=== PATIENT | male | born 1945 | race Hispanic/Latino ===

== ENCOUNTER 2017-04-26 19:56 | Inpatient (IN) | payer OTHER ==
[~2017-04-26] VITALS: Ht 172.7 cm; Wt 96.2 kg
[~2017-04-26 19:56] MED LIST: ACET-2247 PO; ASPI-1012 PO; ATOR10TA69 PO; CELE200 PO; LOSA25TA21 PO; METF500T6 PO; OXYC5 PO; PREG25 PO; TRAM50TA4 PO
[2017-04-26] MEDS ORDERED: SODIUM CHLORIDE 0.9% 1000ML 3,000 ML IV ONE (20:17)
[2017-04-26] MEDS ORDERED: IBUPROFEN 600 MG TABLET ONE (20:25)
[2017-04-26 20:40] LABS: BASOPHILS % (AUTO) 0.6 % (0.0-5.0); EOSINOPHILS % (AUTO) 0.1 % (0.0-8.0); HEMATOCRIT 42.8 % (42-54); LYMPHOCYTES % (AUTO) 11.3 % (21.0-51.0); MEAN CORPUSCULAR HEMOGLOBIN 32.2 pg (27.0-33.0); MEAN CORPUSCULAR HGB CONC 35.1 g/dL (32.0-36.0); MEAN CORPUSCULAR VOLUME 91.7 fL (79-99); MONOCYTES % (AUTO) 18.6 % (3.0-13.0); NEUTROPHILS % (AUTO) 69.4 % (40.0-77.0); PLATELET COUNT (AUTO) 180 K/uL (130-400); RED BLOOD CELL COUNT(AUTO) 4.67 MIL/uL (4.50-6.20); WHITE BLOOD COUNT (AUTO) 10.9 K/uL (4.8-10.8)
[2017-04-26 20:44] LABS: CARBON DIOXIDE 22 mmol/L (21-32); CHLORIDE 101 mmol/L (101-111); CREATININE 0.9 mg/dL (0.5-1.5); GLOMERULAR FILTR. RATE CALC 89 mL/min (>60); GLUCOSE,RANDOM 158 mg/dL (70-105); POTASSIUM 3.9 mmol/L (3.5-5.1); SODIUM SERUM 134 mmol/L (136-145); UREA NITROGEN, BLOOD 19 mg/dL (7-18)
[2017-04-26 20:45] LABS: INR 1.09 (0.85-1.15); PARTIAL THROMBOPLASTIN TIME 30.1 SEC (26.3-35.5); PROTHROMBIN TIME 11.4 SEC (9.6-11.6)
[2017-04-26 21:01] LABS: ALANINE AMINOTRANSFERASE 36 U/L (12-78); ALBUMIN 3.5 g/dL (3.5-5.0); ASPARTATE AMINOTRANSFERASE 40 U/L (10-37); CREATINE KINASE MB 0.6 ng/mL (0.5-3.6); CREATINE KINASE, TOTAL 272 U/L (21-232); MYOGLOBIN 76 ng/mL (10-92); TOTAL PROTEIN, SERUM 8.1 g/dL (6.0-8.3); TROPONIN I < 0.04 ng/mL (0.00-0.06)
[2017-04-26 21:47] LABS: APPEARANCE,URINE Clear (CLEAR); BILIRUBIN,URINE Small (NEGATIVE); COLOR,URINE Dark Yellow (YELLOW); GLUCOSE, URINE (UA) Negative (NEGATIVE); KETONES,URINE Negative (NEGATIVE); LEUKOCYTE ESTERASE ,URINE Small (NEGATIVE); NITRATE,URINE Negative (NEGATIVE); OCCULT BLOOD,URINE Negative (NEGATIVE); PROTEIN,URINE POS 2+ (NEGATIVE)
[2017-04-26 21:54] LABS: RBC,URINE 0-1 /HPF (0-1)
[2017-04-26 21:55] LABS: BACTERIA,URINE Rare /HPF (None Seen); MUCUS,URINE Rare LPF (None Seen); SQUAMOUS EPITHELIAL CELL,UR Rare /HPF (0-2)
[2017-04-26] MEDS ORDERED: LIDOCAINE HCL 1% 20 ML VIAL ONE (22:40)
[2017-04-26] MEDS ORDERED: SODIUM CHLORIDE 0.9% 50 ML IV ONE (23:26)
[2017-04-26] MEDS ORDERED: CEFTRIAXONE SODIUM 2 GM VIAL ONE (23:26)
[2017-04-26] MEDS ORDERED: VANCOMYCIN 1GM+NS 250ML 250 ML IV ONE (23:26)
[2017-04-27 00:18] LABS: APPEARANCE BODY FLUID TURBID (CLEAR); COLOR,BODY FLUID YELLOW (LT YELLOW); SPECIMENTYPE,BODY FLUID SYNOVIAL; TOTAL VOLUME,BODY FLUID 31 mL
[2017-04-27 00:19] LABS: BODY FLUID WBC 65600 /cu. mm.
[2017-04-27 00:20] LABS: BODY FLUID RBC 16000 /cu. mm.
[2017-04-27 00:24] LABS: BF LYMPHOCYTE 10 %; BF MONOCYTE 1 %; BF OTHER CELLS 2
[2017-04-27] MEDS ORDERED: POTASSIUM CHLORIDE 20 MEQ ERTAB PO PRN (01:45)
[2017-04-27] MEDS ORDERED: ACETAMINOPHEN 325 MG TAB PO PRN ×2 (01:45)
[2017-04-27] MEDS ORDERED: POTASSIUM CHLORIDE 10% ELIXIR 20 MEQ/15 ML UDCUP PO PRN (01:45)
[2017-04-27] MEDS ORDERED: VANCOMYCIN 1GM+NS 250ML 250 ML IV SCH (01:45)
[2017-04-27] MEDS ORDERED: MORPHINE SULFATE 2 MG/ML 1ML SYG IV PRN (01:45)
[2017-04-27] MEDS ORDERED: CEFTRIAXONE 1GM/D5W 50ML 50 ML IV SCH (01:45)
[2017-04-27] MEDS ORDERED: POTASSIUM CHLORIDE 20MEQ/100ML 100 ML IV PRN (01:45)
[2017-04-27] MEDS ORDERED: ONDANSETRON HCL 4 MG/2 ML VIAL IV PRN (01:45)
[2017-04-27] MEDS ORDERED: LIDOCAINE HCL-MPF 1% 2ML VIAL IVP PRN (01:45)
[2017-04-27] MEDS ORDERED: HYDRALAZINE HCL 20 MG/ML VIAL IV PRN (01:45)
[2017-04-27] MEDS ORDERED: VANCOMYCIN PROTOCOL PER PHARMACY IV SCH (02:00)
[2017-04-27 06:26] LABS: HEMATOCRIT 38.5 % (42-54); MEAN CORPUSCULAR HEMOGLOBIN 32.8 pg (27.0-33.0); MEAN CORPUSCULAR HGB CONC 35.7 g/dL (32.0-36.0); MEAN CORPUSCULAR VOLUME 91.7 fL (79-99); PLATELET COUNT (AUTO) 140 K/uL (130-400); RED BLOOD CELL COUNT(AUTO) 4.19 MIL/uL (4.50-6.20); RED CELL DISTRIBUTION WIDTH 14.2 % (11.0-15.5); WHITE BLOOD COUNT (AUTO) 8.2 K/uL (4.8-10.8)
[2017-04-27 06:59] LABS: CREATININE 0.7 mg/dL (0.5-1.5); POTASSIUM 3.7 mmol/L (3.5-5.1)
[2017-04-27] MEDS ORDERED: POTASSIUM CHLORIDE 20 MEQ ERTAB PO ONE ×2 (08:32→11:22)
[2017-04-27] MEDS ORDERED: PANTOPRAZOLE SODIUM 40 MG TABLET.DR PO ONE (09:10)
[2017-04-27 16:20] VITALS: BP 144/102
[2017-04-27] MEDS: INSULIN HUMULIN R 100 UNIT/ML 3ML SQ SCH ×2 (16:30→21:00)
[2017-04-27] MEDS: CEFTRIAXONE SODIUM 1 GM IVP SCH (17:27)
[2017-04-27] MEDS: PANTOPRAZOLE SODIUM 40 MG TABLET.DR PO SCH (17:27)
[2017-04-27] MEDS ORDERED: PHARMACY COMMUNICATION MISC SCH (17:30)
[2017-04-27 20:00] VITALS: BP 126/68
[2017-04-27] MEDS ORDERED: COMPOUND IV REFRIGERATED 1 EACH IVSOLN MISC PRN (20:30)
[2017-04-27 20:45] VITALS: BP 111/65
[2017-04-27] MEDS: VANCOMYCIN 1.5 GM in SODIUM CHLORIDE 0.9% 250 ML IV SCH (22:20)
[2017-04-27 23:49] VITALS: BP 153/86
[2017-04-28] VITALS (22 sets, daily range): BP systolic 106–145; BP diastolic 58–83
[2017-04-28] MEDS: CEFTRIAXONE SODIUM 1 GM IVP SCH (01:59)
[2017-04-28] MEDS: INSULIN HUMULIN R 100 UNIT/ML 3ML SQ SCH ×6 (05:36→21:11)
[2017-04-28 05:37] LABS: HEMATOCRIT 36.4 % (42-54); MEAN CORPUSCULAR HEMOGLOBIN 32.9 pg (27.0-33.0); MEAN CORPUSCULAR VOLUME 91.2 fL (79-99); PLATELET COUNT (AUTO) 155 K/uL (130-400); RED BLOOD CELL COUNT(AUTO) 3.99 MIL/uL (4.50-6.20); RED CELL DISTRIBUTION WIDTH 14.1 % (11.0-15.5); WHITE BLOOD COUNT (AUTO) 8.5 K/uL (4.8-10.8)
[2017-04-28 05:46] LABS: CREATININE 0.7 mg/dL (0.5-1.5); POTASSIUM 3.9 mmol/L (3.5-5.1)
[2017-04-28] MEDS: PANTOPRAZOLE SODIUM 40 MG TABLET.DR PO SCH (09:00)
[2017-04-28] MEDS: VANCOMYCIN 1.5 GM in SODIUM CHLORIDE 0.9% 250 ML IV SCH ×2 (10:11→20:00)
[2017-04-28] MEDS ORDERED: LIDOCAINE PF 2% 5ML ABBOJECT ONE (11:57)
[2017-04-28] MEDS ORDERED: DEXAMETHASONE SOD PHOSPHATE 10MG/ML 1ML VIAL ONE ×2 (11:57→13:53)
[2017-04-28] MEDS ORDERED: ONDANSETRON HCL 4 MG/2 ML VIAL ONE (11:57)
[2017-04-28] MEDS ORDERED: GLYCOPYRROLATE 0.2 MG/ML 5 ML VIAL ONE ×2 (11:57→13:54)
[2017-04-28] MEDS ORDERED: PROPOFOL 10 MG/ML 20ML VIAL IV ONE (11:58)
[2017-04-28] MEDS ORDERED: MIDAZOLAM HCL 1 MG/ML 2ML VIAL ONE (11:58)
[2017-04-28] MEDS ORDERED: FENTANYL CITRATE PF 50 MCG/1 ML 2ML VIAL ONE ×3 (11:58→14:57)
[2017-04-28] MEDS ORDERED: GENTAMICIN SULFATE 80 MG/2 ML VIAL ONE ×3 (13:20→14:30)
[2017-04-28] MEDS ORDERED: VANCOMYCIN HCL 1 GM VIAL ONE ×3 (13:20→14:29)
[2017-04-28] MEDS ORDERED: TRANEXAMIC ACID 1000MG/10ML IV ONE (13:21)
[2017-04-28] MEDS ORDERED: SUCCINYLCHOLINE CHLORIDE 20 MG/ML 10 ML VIAL ONE (13:52)
[2017-04-28] MEDS ORDERED: ROCURONIUM BROMIDE 10MG/1ML 5ML VL ONE ×2 (13:52)
[2017-04-28] MEDS ORDERED: METOCLOPRAMIDE 10 MG/2 ML VIAL ONE (13:53)
[2017-04-28] MEDS ORDERED: LIDOCAINE HCL 4% LTA SOL 4 ML VIAL ONE (13:53)
[2017-04-28] MEDS ORDERED: LIDOCAINE HCL 2% JELLY 5 ML ONE (13:53)
[2017-04-28] MEDS ORDERED: PHENYLEPHRINE HCL 10 MG/ML 1ML VIAL IV ONE (13:54)
[2017-04-28] MEDS ORDERED: NEOSTIGMINE METHYLSULFATE 1MG/ML IV ONE (13:54)
[2017-04-28] MEDS ORDERED: GENTAMICIN 80 MG/NS 100 ML PB 100 ML IV ONE (14:38)
[2017-04-28] MEDS ORDERED: SODIUM CHLORIDE 0.9% 10 ML VIAL ONE (14:57)
[2017-04-28] MEDS ORDERED: FERROUS FUMARATE 324 MG TABLET PO PRN (15:00)
[2017-04-28] MEDS ORDERED: TEMAZEPAM 15 MG CAPSULE PO PRN (15:00)
[2017-04-28] MEDS ORDERED: KETOROLAC TROMETHAMINE 15MG/ML IV PRN (15:00)
[2017-04-28] MEDS ORDERED: HYDROCODONE/ACETAMINOPHEN 5/325 MG TAB PO PRN (15:00)
[2017-04-28] MEDS ORDERED: POTASSIUM CHLORIDE 20 MEQ ERTAB PO PRN (15:00)
[2017-04-28] MEDS ORDERED: DiphenhydrAMINE HCL 50 MG/ML VIAL IVP PRN (15:00)
[2017-04-28] MEDS ORDERED: POTASSIUM CHLORIDE 20MEQ/100ML 100 ML IV PRN (15:00)
[2017-04-28] MEDS ORDERED: PROMETHAZINE HCL 25 MG/ML 1ML AMPULE IM PRN (15:00)
[2017-04-28] MEDS ORDERED: LIDOCAINE HCL-MPF 1% 2ML VIAL IVP PRN (15:00)
[2017-04-28] MEDS ORDERED: POTASSIUM CHLORIDE 10% ELIXIR 20 MEQ/15 ML UDCUP PO PRN (15:00)
[2017-04-28] MEDS ORDERED: DIPHENHYDRAMINE HCL 25 MG CAPSULE PO PRN (15:00)
[2017-04-28] MEDS ORDERED: CALCIUM CARBONATE 500 MG TABLET PO PRN (15:00)
[2017-04-28] MEDS ORDERED: ONDANSETRON HCL MDV 20ML 2 MG/ML VIAL IV PRN (15:19)
[2017-04-28] MEDS ORDERED: CALDOLOR 800MG+NS 250ML 250 ML IV ONE (15:28)
[2017-04-28] MEDS ORDERED: MEPERIDINE-PF 25 MG/ML SYG ONE (15:48)
[2017-04-28 16:08] LABS: APPEARANCE BODY FLUID CLOUDY (CLEAR); SPECIMENTYPE,BODY FLUID RT KNEE JOINT FLUID
[2017-04-28 16:09] LABS: COLOR,BODY FLUID AMBER (LT YELLOW)
[2017-04-28 16:40] LABS: TOTAL VOLUME,BODY FLUID 25 mL
[2017-04-28 16:41] LABS: BODY FLUID WBC 20640 /cu. mm.
[2017-04-28 16:42] LABS: BODY FLUID RBC 25375 /cu. mm.
[2017-04-28 16:45] LABS: BF LYMPHOCYTE 2 %
[2017-04-28] MEDS: METFORMIN HCL 500 MG TABLET PO SCH (17:44)
[2017-04-28] MEDS: SODIUM CHLORIDE 0.9% 1000ML 1,000 ML IV SCH (17:45)
[2017-04-28] MEDS: HYDROCODONE/ACETAMINOPHEN 5/325 MG TAB PO PRN (17:45)
[2017-04-28 18:40] LABS: INR 1.05 (0.85-1.15); PARTIAL THROMBOPLASTIN TIME 31.4 SEC (26.3-35.5)
[2017-04-28] MEDS: FAMOTIDINE 20MG TAB 20 MG TAB PO SCH (20:00)
[2017-04-28] MEDS: ASPIRIN 325 MG TABLET PO SCH (20:01)
[2017-04-28] MEDS: ATORVASTATIN CALCIUM 10 MG TABLET PO SCH (20:01)
[2017-04-29] MEDS: CEFTRIAXONE SODIUM 1 GM IVP SCH (01:44)
[2017-04-29] MEDS: SODIUM CHLORIDE 0.9% 1000ML 1,000 ML IV SCH ×2 (01:44→08:42)
[2017-04-29 05:44] LABS: CREATININE 0.7 mg/dL (0.5-1.5); POTASSIUM 4.1 mmol/L (3.5-5.1)
[2017-04-29 05:49] LABS: HEMATOCRIT 33.6 % (42-54); MEAN CORPUSCULAR HEMOGLOBIN 33.3 pg (27.0-33.0); MEAN CORPUSCULAR HGB CONC 36.4 g/dL (32.0-36.0); MEAN CORPUSCULAR VOLUME 91.6 fL (79-99); PLATELET COUNT (AUTO) 192 K/uL (130-400); RED BLOOD CELL COUNT(AUTO) 3.67 MIL/uL (4.50-6.20); RED CELL DISTRIBUTION WIDTH 14.3 % (11.0-15.5); WHITE BLOOD COUNT (AUTO) 7.6 K/uL (4.8-10.8)
[2017-04-29 05:53] VITALS: BP 114/70
[2017-04-29] MEDS: INSULIN HUMULIN R 100 UNIT/ML 3ML SQ SCH ×8 (06:17→21:00)
[2017-04-29 08:03] VITALS: BP 132/61
[2017-04-29] MEDS: TAMSULOSIN HCL 0.4 MG CAP.ER.24H PO SCH (08:39)
[2017-04-29] MEDS: ASPIRIN 325 MG TABLET PO SCH ×2 (08:39→19:59)
[2017-04-29] MEDS: METFORMIN HCL 500 MG TABLET PO SCH ×2 (08:39→17:00)
[2017-04-29] MEDS: LOSARTAN 50 MG TABLET PO SCH (08:40)
[2017-04-29] MEDS: PANTOPRAZOLE SODIUM 40 MG TABLET.DR PO SCH (08:41)
[2017-04-29] MEDS: HYDROCODONE/ACETAMINOPHEN 5/325 MG TAB PO PRN (08:41)
[2017-04-29] MEDS: FAMOTIDINE 20MG TAB 20 MG TAB PO SCH ×2 (08:41→19:59)
[2017-04-29] MEDS: POLYETHYLENE GLYCOL 3350 17 GM POWD.PACK PO SCH (08:41)
[2017-04-29] MEDS: VANCOMYCIN 1.5 GM in SODIUM CHLORIDE 0.9% 250 ML IV SCH ×2 (10:34→21:06)
[2017-04-29 11:51] VITALS: BP 115/69
[2017-04-29] MEDS: PSYLLIUM SEED 1 EACH PACKET PO SCH (12:12)
[2017-04-29] MEDS ORDERED: CEFEPIME 1GM+NS 50ML 50 ML IV SCH (14:15)
[2017-04-29] MEDS: CEFEPIME HCL 1 GM VIAL IVP SCH ×2 (15:28→23:17)
[2017-04-29 16:31] VITALS: BP 119/57
[2017-04-29] MEDS: ATORVASTATIN CALCIUM 10 MG TABLET PO SCH (19:59)
[2017-04-29 20:06] VITALS: BP 115/68
[2017-04-30 00:44] VITALS: BP 122/70
[2017-04-30 05:11] VITALS: BP 124/57
[2017-04-30 05:16] LABS: MEAN CORPUSCULAR HEMOGLOBIN 32.7 pg (27.0-33.0); MEAN CORPUSCULAR HGB CONC 35.5 g/dL (32.0-36.0); MEAN CORPUSCULAR VOLUME 92.1 fL (79-99); PLATELET COUNT (AUTO) 207 K/uL (130-400); RED BLOOD CELL COUNT(AUTO) 3.58 MIL/uL (4.50-6.20); RED CELL DISTRIBUTION WIDTH 13.8 % (11.0-15.5); WHITE BLOOD COUNT (AUTO) 7.6 K/uL (4.8-10.8)
[2017-04-30 05:35] LABS: CREATININE 0.8 mg/dL (0.5-1.5); POTASSIUM 3.9 mmol/L (3.5-5.1)
[2017-04-30] MEDS: INSULIN HUMULIN R 100 UNIT/ML 3ML SQ SCH ×8 (06:02→21:00)
[2017-04-30] MEDS: CEFEPIME HCL 1 GM VIAL IVP SCH ×3 (06:02→23:35)
[2017-04-30 08:00] VITALS: BP 133/75
[2017-04-30] MEDS: VANCOMYCIN 1.5 GM in SODIUM CHLORIDE 0.9% 250 ML IV SCH ×2 (08:45→20:59)
[2017-04-30] MEDS: ASPIRIN 325 MG TABLET PO SCH ×2 (08:45→20:59)
[2017-04-30] MEDS: LOSARTAN 50 MG TABLET PO SCH (08:45)
[2017-04-30] MEDS: METFORMIN HCL 500 MG TABLET PO SCH ×2 (08:45→17:47)
[2017-04-30] MEDS: PANTOPRAZOLE SODIUM 40 MG TABLET.DR PO SCH (08:45)
[2017-04-30] MEDS: POLYETHYLENE GLYCOL 3350 17 GM POWD.PACK PO SCH (08:46)
[2017-04-30] MEDS: TAMSULOSIN HCL 0.4 MG CAP.ER.24H PO SCH (08:46)
[2017-04-30] MEDS: FAMOTIDINE 20MG TAB 20 MG TAB PO SCH ×2 (08:46→20:59)
[2017-04-30 11:39] VITALS: BP 130/70
[2017-04-30] MEDS: PSYLLIUM SEED 1 EACH PACKET PO SCH (12:04)
[2017-04-30] MEDS ORDERED: BISACODYL 5 MG TABLET.DR PO PRN (15:00)
[2017-04-30 16:00] VITALS: BP 138/72
[2017-04-30 20:00] VITALS: BP 137/75
[2017-04-30] MEDS: ATORVASTATIN CALCIUM 10 MG TABLET PO SCH (20:59)
[2017-05-01] VITALS: BP 144/75
[2017-05-01 04:00] VITALS: BP 145/78
[2017-05-01] MEDS: INSULIN HUMULIN R 100 UNIT/ML 3ML SQ SCH ×8 (07:30→21:00)
[2017-05-01] MEDS: CEFEPIME HCL 1 GM VIAL IVP SCH ×3 (07:32→23:35)
[2017-05-01] MEDS: PANTOPRAZOLE SODIUM 40 MG TABLET.DR PO SCH (07:57)
[2017-05-01] MEDS: METFORMIN HCL 500 MG TABLET PO SCH ×2 (07:57→18:20)
[2017-05-01] MEDS: FAMOTIDINE 20MG TAB 20 MG TAB PO SCH ×2 (07:57→21:04)
[2017-05-01] MEDS: LOSARTAN 50 MG TABLET PO SCH (07:57)
[2017-05-01] MEDS: ASPIRIN 325 MG TABLET PO SCH ×2 (07:57→21:04)
[2017-05-01] MEDS: POLYETHYLENE GLYCOL 3350 17 GM POWD.PACK PO SCH (07:58)
[2017-05-01 08:00] VITALS: BP 138/76
[2017-05-01] MEDS: VANCOMYCIN 1.5 GM in SODIUM CHLORIDE 0.9% 250 ML IV SCH ×2 (08:04→21:05)
[2017-05-01] MEDS: TAMSULOSIN HCL 0.4 MG CAP.ER.24H PO SCH (08:05)
[2017-05-01 12:00] VITALS: BP 163/84
[2017-05-01] MEDS: PSYLLIUM SEED 1 EACH PACKET PO SCH (14:25)
[2017-05-01] MEDS ORDERED: BISACODYL 10 MG SUPP.RECT RC PRN (15:00)
[2017-05-01 16:00] VITALS: BP 138/87
[2017-05-01 20:00] VITALS: BP 140/83
[2017-05-01] MEDS: ATORVASTATIN CALCIUM 10 MG TABLET PO SCH (21:04)
[2017-05-02] VITALS: BP 144/83
[2017-05-02 04:00] VITALS: BP 141/83
[2017-05-02 06:08] LABS: MEAN CORPUSCULAR HEMOGLOBIN 32.6 pg (27.0-33.0); MEAN CORPUSCULAR HGB CONC 35.6 g/dL (32.0-36.0); MEAN CORPUSCULAR VOLUME 91.5 fL (79-99); PLATELET COUNT (AUTO) 264 K/uL (130-400); RED BLOOD CELL COUNT(AUTO) 3.83 MIL/uL (4.50-6.20); RED CELL DISTRIBUTION WIDTH 14.1 % (11.0-15.5); WHITE BLOOD COUNT (AUTO) 9.4 K/uL (4.8-10.8)
[2017-05-02 06:19] LABS: CREATININE 0.8 mg/dL (0.5-1.5); POTASSIUM 3.8 mmol/L (3.5-5.1)
[2017-05-02] MEDS: CEFEPIME HCL 1 GM VIAL IVP SCH ×3 (07:05→23:30)
[2017-05-02] MEDS: INSULIN HUMULIN R 100 UNIT/ML 3ML SQ SCH ×4 (07:30→21:00)
[2017-05-02 08:00] VITALS: BP 135/87
[2017-05-02] MEDS: FAMOTIDINE 20MG TAB 20 MG TAB PO SCH (09:00)
[2017-05-02] MEDS: TAMSULOSIN HCL 0.4 MG CAP.ER.24H PO SCH (09:00)
[2017-05-02] MEDS: METFORMIN HCL 500 MG TABLET PO SCH ×2 (09:12→17:30)
[2017-05-02] MEDS: VANCOMYCIN 1.5 GM in SODIUM CHLORIDE 0.9% 250 ML IV SCH ×2 (09:12→20:54)
[2017-05-02] MEDS: LOSARTAN 50 MG TABLET PO SCH (09:12)
[2017-05-02] MEDS: ASPIRIN 325 MG TABLET PO SCH ×2 (09:12→20:54)
[2017-05-02] MEDS: POLYETHYLENE GLYCOL 3350 17 GM POWD.PACK PO SCH (09:13)
[2017-05-02] MEDS: PANTOPRAZOLE SODIUM 40 MG TABLET.DR PO SCH (09:13)
[2017-05-02] MEDS: PSYLLIUM SEED 1 EACH PACKET PO SCH (11:40)
[2017-05-02 12:00] VITALS: BP 173/92
[2017-05-02 16:00] VITALS: BP 142/84
[2017-05-02 20:00] VITALS: BP 140/81
[2017-05-02] MEDS: ATORVASTATIN CALCIUM 10 MG TABLET PO SCH (20:54)
[2017-05-03] VITALS: BP 137/81
[2017-05-03 04:00] VITALS: BP 136/79
[2017-05-03] MEDS: INSULIN HUMULIN R 100 UNIT/ML 3ML SQ SCH ×4 (07:18→21:00)
[2017-05-03 07:41] VITALS: BP 119/66
[2017-05-03] MEDS: ASPIRIN 325 MG TABLET PO SCH ×2 (08:30→22:07)
[2017-05-03] MEDS: POLYETHYLENE GLYCOL 3350 17 GM POWD.PACK PO SCH (08:30)
[2017-05-03] MEDS: TAMSULOSIN HCL 0.4 MG CAP.ER.24H PO SCH (08:30)
[2017-05-03] MEDS: PANTOPRAZOLE SODIUM 40 MG TABLET.DR PO SCH (08:30)
[2017-05-03] MEDS: METFORMIN HCL 500 MG TABLET PO SCH ×2 (08:31→18:43)
[2017-05-03] MEDS: LOSARTAN 50 MG TABLET PO SCH (08:31)
[2017-05-03] MEDS: VANCOMYCIN 1.5 GM in SODIUM CHLORIDE 0.9% 250 ML IV SCH ×2 (08:32→22:07)
[2017-05-03 11:03] VITALS: BP 135/72
[2017-05-03] MEDS: PSYLLIUM SEED 1 EACH PACKET PO SCH (12:00)
[2017-05-03] MEDS: CEFEPIME HCL 1 GM VIAL IVP SCH (15:45)
[2017-05-03 16:23] VITALS: BP 141/76
[2017-05-03 20:00] VITALS: BP 133/78
[2017-05-03] MEDS: ATORVASTATIN CALCIUM 10 MG TABLET PO SCH (22:07)
[2017-05-04] VITALS: BP 136/71
[2017-05-04] MEDS: CEFEPIME HCL 1 GM VIAL IVP SCH ×4 (00:06→22:30)
[2017-05-04 04:57] VITALS: BP 131/74
[2017-05-04] MEDS: INSULIN HUMULIN R 100 UNIT/ML 3ML SQ SCH ×4 (06:18→20:44)
[2017-05-04 07:41] VITALS: BP 125/72
[2017-05-04] MEDS: ASPIRIN 325 MG TABLET PO SCH ×2 (09:12→20:01)
[2017-05-04] MEDS: LOSARTAN 50 MG TABLET PO SCH (09:12)
[2017-05-04] MEDS: TAMSULOSIN HCL 0.4 MG CAP.ER.24H PO SCH (09:12)
[2017-05-04] MEDS: PANTOPRAZOLE SODIUM 40 MG TABLET.DR PO SCH (09:12)
[2017-05-04] MEDS: POLYETHYLENE GLYCOL 3350 17 GM POWD.PACK PO SCH (09:15)
[2017-05-04] MEDS: METFORMIN HCL 500 MG TABLET PO SCH ×2 (09:15→18:25)
[2017-05-04] MEDS: VANCOMYCIN 1.5 GM in SODIUM CHLORIDE 0.9% 250 ML IV SCH ×2 (09:16→21:17)
[2017-05-04 11:14] VITALS: BP 125/74
[2017-05-04] MEDS: PSYLLIUM SEED 1 EACH PACKET PO SCH (12:00)
[2017-05-04] MEDS ORDERED: HYDR-2132 PO (13:20)
[2017-05-04] MEDS ORDERED: ASPI-1012 PO (13:20)
[2017-05-04 16:48] VITALS: BP 139/81
[2017-05-04] MEDS: ATORVASTATIN CALCIUM 10 MG TABLET PO SCH (20:01)
[2017-05-04 20:02] VITALS: BP 136/71
[2017-05-05 00:11] VITALS: BP 119/63
[2017-05-05 04:30] VITALS: BP 124/66
[2017-05-05] MEDS: INSULIN HUMULIN R 100 UNIT/ML 3ML SQ SCH (05:47)
[2017-05-05] MEDS: CEFEPIME HCL 1 GM VIAL IVP SCH ×2 (05:49→13:04)
[2017-05-05 07:39] VITALS: BP 116/65
[2017-05-05] MEDS: POLYETHYLENE GLYCOL 3350 17 GM POWD.PACK PO SCH (08:35)
[2017-05-05] MEDS: VANCOMYCIN 1.5 GM in SODIUM CHLORIDE 0.9% 250 ML IV SCH (08:36)
[2017-05-05] MEDS: ASPIRIN 325 MG TABLET PO SCH (08:36)
[2017-05-05] MEDS: TAMSULOSIN HCL 0.4 MG CAP.ER.24H PO SCH (08:36)
[2017-05-05] MEDS: LOSARTAN 50 MG TABLET PO SCH (08:36)
[2017-05-05] MEDS: METFORMIN HCL 500 MG TABLET PO SCH (08:36)
[2017-05-05] MEDS: PANTOPRAZOLE SODIUM 40 MG TABLET.DR PO SCH (08:36)
[2017-05-05] MEDS: PSYLLIUM SEED 1 EACH PACKET PO SCH (11:36)
== END 2017-05-05 13:09 | disposition home or self-care (01) | DRG 463 ==
LOC: EDH 19:56 → EDHIP 23:30 → OBSVTOIN 23:30 → 4AH 04-27 16:15
PROVIDERS: ADMIT Internal Medicine; ATTEND Internal Medicine
PROC: 02HV33Z Insertion of Infusion Device into Superior Vena Cava, Percutaneous Approach (ICD-10-PCS; 2017-04-27)
PROC: 0S9C3ZZ Drainage of Right Knee Joint, Percutaneous Approach (ICD-10-PCS; 2017-04-27)
PROC: 0JBN0ZZ Excision of Right Lower Leg Subcutaneous Tissue and Fascia, Open Approach (ICD-10-PCS; principal; 2017-04-28 13:55)
PROC: 3E1U38Z Irrigation of Joints using Irrigating Substance, Percutaneous Approach (ICD-10-PCS; 2017-04-28 13:55)
DX: T84.53XA Infection and inflammatory reaction due to internal right knee prosthesis, initial encounter (principal); A41.9 Sepsis, unspecified organism; M00.9 Pyogenic arthritis, unspecified; L03.115 Cellulitis of right lower limb; N39.0 Urinary tract infection, site not specified; N41.9 Inflammatory disease of prostate, unspecified; Y83.1 Surgical operation with implant of artificial internal device as the cause of abnormal reaction of the patient, or of later complication, without mention of misadventure at the time of the procedure; E11.9 Type 2 diabetes mellitus without complications; E66.9 Obesity, unspecified; Z68.32 Body mass index [BMI] 32.0-32.9, adult; E78.5 Hyperlipidemia, unspecified; I10 Essential (primary) hypertension; M17.10 Unilateral primary osteoarthritis, unspecified knee; N40.0 Benign prostatic hyperplasia without lower urinary tract symptoms; Z74.01 Bed confinement status; Z83.3 Family history of diabetes mellitus; Z96.653 Presence of artificial knee joint, bilateral; Z28.21 Immunization not carried out because of patient refusal
CPT/HCPCS: 36415; 71045; 73562; 80048; 80053; 80202; 81001; 82550; 82553; 82948; 83605; 83874; 84484; 85025; 85027; 85610; 85651; 85730; 87040; 87070; 87071; 87076; 87088; 87205; 88300; 88304; 89051; 93005; 99291; A4218; J0330; J0692; J0696; J1100; J1580; J1741; J1815; J2001; J2175; J2250; J2370; J2405; J2704; J2710; J2765; J3010; J3370; J3490; J7030

== ENCOUNTER 2018-11-07 21:42 | Emergency (ER) | payer OTHER ==
[~2018-11-07 21:42] MED LIST changes: -ACET-2247 PO; -CELE200 PO; +HYDR-2132 PO; -LOSA25TA21 PO; +LOSA25TA41 PO; +METF-444 PO; -METF500T6 PO; -OXYC5 PO; -PREG25 PO; -TRAM50TA4 PO
[2018-11-07 22:57] LABS: BASOPHILS % (AUTO) 0.4 % (0.0-5.0); EOSINOPHILS % (AUTO) 0.2 % (0.0-8.0); HEMATOCRIT 45.2 % (42-54); LYMPHOCYTES % (AUTO) 11.2 % (21.0-51.0); MEAN CORPUSCULAR HEMOGLOBIN 33.1 pg (27.0-33.0); MEAN CORPUSCULAR VOLUME 94.6 fL (79-99); MONOCYTES % (AUTO) 8.5 % (3.0-13.0); NEUTROPHILS % (AUTO) 79.7 % (40.0-77.0); NUCLEATED RED BLOOD CELLS 0.1 % (0.0-0.19); PLATELET COUNT (AUTO) 132 K/uL (130-400); RED BLOOD CELL COUNT(AUTO) 4.78 MIL/uL (4.50-6.20); RED CELL DISTRIBUTION WIDTH 13.7 % (11.0-15.5); WHITE BLOOD COUNT (AUTO) 10.8 K/uL (4.8-10.8)
[2018-11-07 23:11] LABS: CREATININE 1.2 mg/dL (0.5-1.5)
[2018-11-07 23:12] LABS: APPEARANCE,URINE Cloudy (CLEAR); BILIRUBIN,URINE Negative (NEGATIVE); COLOR,URINE Yellow (YELLOW); GLUCOSE, URINE (UA) Negative (NEGATIVE); KETONES,URINE Trace mg/dL (NEGATIVE); LEUKOCYTE ESTERASE ,URINE Negative (NEGATIVE); NITRATE,URINE Negative (NEGATIVE); OCCULT BLOOD,URINE Large (NEGATIVE); PROTEIN,URINE POS 1+ mg/dL (NEGATIVE)
[2018-11-07 23:16] LABS: ALBUMIN 4.5 g/dL (3.5-5.0); BILIRUBIN,TOTAL 0.8 mg/dL (0.2-1.0); TOTAL PROTEIN, SERUM 8.4 g/dL (6.0-8.3)
[2018-11-07 23:21] LABS: INR 1.02 (0.85-1.15); PROTHROMBIN TIME 10.7 SEC (9.6-11.6)
[2018-11-07] MEDS ORDERED: SODIUM CHLORIDE 0.9% 1000ML 2,000 ML IV ONE (23:26)
[2018-11-07] MEDS ORDERED: IOHEXOL-350 75 ML VIAL IV ONE (23:27)
[2018-11-07 23:46] LABS: BACTERIA,URINE Few /HPF (None Seen); MUCUS,URINE Few LPF (None Seen); RBC,URINE >100 /HPF (0-1); SQUAMOUS EPITHELIAL CELL,UR 0-2 /HPF (0-2)
[2018-11-08] MEDS ORDERED: TAMSULOSIN HCL 0.4 MG CAP.ER.24H ONE (01:24)
[2018-11-08] MEDS ORDERED: KETOROLAC TROMETHAMINE 15MG/ML ONE (01:24)
== END 2018-11-08 02:09 | disposition home or self-care (01) ==
LOC: EDH 21:42
DX: N13.2 Hydronephrosis with renal and ureteral calculous obstruction (principal); N23 Unspecified renal colic; E86.9 Volume depletion, unspecified; E11.9 Type 2 diabetes mellitus without complications; I10 Essential (primary) hypertension; E78.00 Pure hypercholesterolemia, unspecified
CPT/HCPCS: 36415; 74177; 80053; 81001; 82550; 83605; 83690; 84484; 85025; 85610; 85730; 93005; 96361 ×2; 96374; 99285; J1885; J7030; Q9967

== ENCOUNTER → 2018-11-16 | Outpatient (CLI) | payer OTHER | END | disposition home or self-care (01) | LOC: RAH 15:51 | PROVIDERS: ATTEND Urology | DX: N13.2 Hydronephrosis with renal and ureteral calculous obstruction (principal) | CPT/HCPCS: 74018 ==

== ENCOUNTER → 2018-12-27 | Outpatient (CLI) | payer OTHER | END | disposition home or self-care (01) | LOC: RAH 13:32 | PROVIDERS: ATTEND Family Medicine | DX: K80.20 Calculus of gallbladder without cholecystitis without obstruction (principal); N20.0 Calculus of kidney; N13.30 Unspecified hydronephrosis; K57.90 Diverticulosis of intestine, part unspecified, without perforation or abscess without bleeding; I70.0 Atherosclerosis of aorta; M47.815 Spondylosis without myelopathy or radiculopathy, thoracolumbar region | CPT/HCPCS: 74176 ==

== ENCOUNTER 2019-01-19 07:46 | Day surgery (SDC) | payer OTHER ==
[2019-01-16 16:31] LABS: BASOPHILS % (AUTO) 0.3 % (0.0-5.0); EOSINOPHILS % (AUTO) 2.1 % (0.0-8.0); HEMATOCRIT 38.3 % (42-54); LYMPHOCYTES % (AUTO) 30.9 % (21.0-51.0); MEAN CORPUSCULAR HEMOGLOBIN 31.8 pg (27.0-33.0); MEAN CORPUSCULAR HGB CONC 33.9 g/dL (32.0-36.0); MEAN CORPUSCULAR VOLUME 93.6 fL (79-99); MONOCYTES % (AUTO) 10.3 % (3.0-13.0); NEUTROPHILS % (AUTO) 56.1 % (40.0-77.0); PLATELET COUNT (AUTO) 123 K/uL (130-400); RED BLOOD CELL COUNT(AUTO) 4.09 MIL/uL (4.50-6.20); WHITE BLOOD COUNT (AUTO) 5.8 K/uL (4.8-10.8)
[2019-01-16 16:36] LABS: APPEARANCE,URINE Clear (CLEAR); BILIRUBIN,URINE Negative (NEGATIVE); COLOR,URINE Yellow (YELLOW); GLUCOSE, URINE (UA) Negative (NEGATIVE); KETONES,URINE Negative (NEGATIVE); LEUKOCYTE ESTERASE ,URINE Negative (NEGATIVE); NITRATE,URINE Negative (NEGATIVE); OCCULT BLOOD,URINE Negative (NEGATIVE); PH,URINE 5.5 (5.0-8.0); PROTEIN,URINE Negative (NEGATIVE)
[2019-01-16 16:50] LABS: CREATININE 1.2 mg/dL (0.5-1.5)
[2019-01-16 16:52] VITALS: BP 140/66
--- NOTE | 2019-01-17 11:27 | NUR ---
EKG 01/16/19 Dr Stallworth reviewed EKG from 01/16/19, ok to proceed to surgery.
[2019-01-19] VITALS (18 sets, daily range): BP systolic 120–147; BP diastolic 62–80
[~2019-01-19] VITALS: Ht 170.2 cm; Wt 100.7 kg
[~2019-01-19 07:46] MED LIST changes: -ASPI-1012 PO; -HYDR-2132 PO
[2019-01-19] MEDS ORDERED: GENTAMICIN 80 MG/NS 100 ML PB 100 ML IV PRN (08:00)
[2019-01-19] MEDS ORDERED: SODIUM CHLORIDE 0.9% 1000ML 1,000 ML IV ONE (08:17)
[2019-01-19] MEDS: CEFTRIAXONE SODIUM 1 GM IVP ONE ×2 (08:33→10:20)
[2019-01-19] MEDS ORDERED: IOHEXOL-350 50ML VIAL IV ONE (09:59)
[2019-01-19] MEDS ORDERED: LIDOCAINE PF 2% 5ML ABBOJECT ONE (10:01)
[2019-01-19] MEDS ORDERED: PROPOFOL 10 MG/ML 20ML VIAL IV ONE (10:01)
[2019-01-19] MEDS ORDERED: FENTANYL CITRATE PF 50 MCG/1 ML 2ML VIAL ONE (10:02)
[2019-01-19] MEDS ORDERED: LIDOCAINE 1%-EPI 1:100,000 20 ML VIAL IJ ONE (10:36)
[2019-01-19] MEDS ORDERED: NEOMY SULF/POLYMYXIN B SULFATE 1 ML AMPUL IR ONE (10:36)
[2019-01-19] MEDS ORDERED: GLYCOPYRROLATE 1 MG/5 ML SYRINGE ONE (10:47)
== END 2019-01-19 13:10 ==
LOC: DAH 07:46
PROVIDERS: ATTEND Urology
DX: N20.1 Calculus of ureter (principal); M17.12 Unilateral primary osteoarthritis, left knee; I10 Essential (primary) hypertension; E11.9 Type 2 diabetes mellitus without complications; Z98.890 Other specified postprocedural states; Z72.89 Other problems related to lifestyle; Z79.899 Other long term (current) drug therapy; Z82.49 Family history of ischemic heart disease and other diseases of the circulatory system; Z83.3 Family history of diabetes mellitus; Z82.3 Family history of stroke
CPT/HCPCS: 36415 ×2; 52356; 71045; 80048; 81003; 82360; 82948 ×2; 85025; 87077; 87088; 87186; 93005; 96365; A4213; A4215; A4221; A4222; A4223 ×2; A4354; A4600; A4663; A6207; A6260; C1758; C1769 ×2; C2617; J0696; J1580; J2001; J2704; J3010; J3490; J7030; 77002; Q9967

== ENCOUNTER 2020-03-15 21:53 | Emergency (ER) | payer OTHER ==
[2020-03-15] MEDS ORDERED: ACETAMINOPHEN 325 MG TAB ONE (22:01)
[2020-03-15 22:19] LABS: BASOPHILS % (AUTO) 0.4 % (0.0-5.0); EOSINOPHILS % (AUTO) 1.1 % (0.0-8.0); HEMATOCRIT 44.7 % (42-54); LYMPHOCYTES % (AUTO) 15.3 % (21.0-51.0); MEAN CORPUSCULAR HEMOGLOBIN 32.5 pg (27.0-33.0); MEAN CORPUSCULAR HGB CONC 35.3 g/dL (32.0-36.0); MONOCYTES % (AUTO) 10.3 % (3.0-13.0); NEUTROPHILS % (AUTO) 72.7 % (40.0-77.0); PLATELET COUNT (AUTO) 123 K/uL (130-400); RED BLOOD CELL COUNT(AUTO) 4.86 MIL/uL (4.50-6.20); RED CELL DISTRIBUTION WIDTH 13.3 % (11.0-15.5); WHITE BLOOD COUNT (AUTO) 8.1 K/uL (4.8-10.8)
[2020-03-15 22:30] LABS: INR 1.06 (0.85-1.15); POTASSIUM 3.7 mmol/L (3.5-5.1); PROTHROMBIN TIME 11.5 SEC (9.6-11.6)
[2020-03-15 22:31] LABS: PARTIAL THROMBOPLASTIN TIME 27.3 SEC (26.3-35.5)
[2020-03-15 22:34] LABS: ALBUMIN 4.2 g/dL (3.5-5.0); BILIRUBIN,TOTAL 0.7 mg/dL (0.2-1.0); TOTAL PROTEIN, SERUM 8.3 g/dL (6.0-8.3)
[2020-03-15 22:37] LABS: RAPID GROUP A STREP NEGATIVE (NEGATIVE)
[2020-03-15] MEDS ORDERED: CEFTRIAXONE SODIUM 1 GM ONE (23:04)
[2020-03-15] MEDS ORDERED: AZITHROMYCIN 250 MG TABLET PO ONE (23:05)
== END 2020-03-15 23:41 | disposition home or self-care (01) ==
LOC: EDH 21:53
DX: R07.89 Other chest pain (principal); J12.9 Viral pneumonia, unspecified; Z20.822 Contact with and (suspected) exposure to COVID-19; E78.00 Pure hypercholesterolemia, unspecified; E11.9 Type 2 diabetes mellitus without complications; I10 Essential (primary) hypertension
CPT/HCPCS: 36415; 71045; 80053; 83605; 83690; 84484; 85025; 85610; 85730; 87040; 87426; 87804 ×2; 87880; 93005; 96365; 99285; J0696; U0003; 96374

== ENCOUNTER → 2021-09-30 | Outpatient (CLI) | payer OTHER | END | disposition home or self-care (01) | LOC: RAH 11:02 | PROVIDERS: ATTEND Family Medicine | DX: R20.2 Paresthesia of skin (principal) | CPT/HCPCS: 70551 ==

== ENCOUNTER → 2023-06-03 | Outpatient (CLI) | payer OTHER | END | disposition home or self-care (01) | LOC: RAH 12:44 | PROVIDERS: ATTEND Internal Medicine Cardiovascular Disease | DX: Z13.6 Encounter for screening for cardiovascular disorders (principal) | CPT/HCPCS: 75571 ==

== ENCOUNTER → 2023-06-07 | Outpatient (CLI) | payer OTHER ==
[2023-06-07] MEDS: REGADENOSON 0.4 MG/5 ML PF SYG IVP ONE (14:09)
== END | disposition home or self-care (01) ==
LOC: SHCH 08:26
PROVIDERS: ATTEND Internal Medicine Cardiovascular Disease
DX: R07.9 Chest pain, unspecified (principal); I10 Essential (primary) hypertension
CPT/HCPCS: 78452; 93017; J2785; A9500 ×2; 96374

== ENCOUNTER → 2023-06-08 | Outpatient (CLI) | payer OTHER | END | disposition home or self-care (01) | LOC: SHCH 10:04 | PROVIDERS: ATTEND Internal Medicine Cardiovascular Disease | DX: I11.9 Hypertensive heart disease without heart failure (principal); I25.10 Atherosclerotic heart disease of native coronary artery without angina pectoris; E11.9 Type 2 diabetes mellitus without complications; E78.5 Hyperlipidemia, unspecified | CPT/HCPCS: 93306 ==

== ENCOUNTER 2023-06-25 23:09 | Emergency (ER) | payer OTHER ==
[~2023-06-25] VITALS: Ht 170.2 cm; Wt 97.5 kg
[2023-06-25 23:57] LABS: BASOPHILS # (AUTO) 0.04 K/uL (0.00-0.20); BASOPHILS % (AUTO) 0.3 % (0.0-5.0); EOSINOPHILS # (AUTO) 0.21 K/uL (0.00-0.70); EOSINOPHILS % (AUTO) 1.8 % (0.0-8.0); HEMATOCRIT 35.3 % (42-54); LYMPHOCYTES # (AUTO) 1.3 K/uL (1.0-4.8); LYMPHOCYTES % (AUTO) 11.5 % (21.0-51.0); MEAN CORPUSCULAR HEMOGLOBIN 32.8 pg (27.0-33.0); MEAN CORPUSCULAR HGB CONC 35.7 g/dL (32.0-36.0); MEAN CORPUSCULAR VOLUME 91.9 fL (79-99); MONOCYTES # (AUTO) 1.2 K/uL (0.1-1.0); MONOCYTES % (AUTO) 10.5 % (3.0-13.0); NEUTROPHILS # (AUTO) 8.6 K/uL (1.8-7.7); PLATELET COUNT (AUTO) 152 K/uL (130-400); RED BLOOD CELL COUNT(AUTO) 3.84 MIL/uL (4.50-6.20); RED CELL DISTRIBUTION WIDTH 13.5 % (11.0-15.5); WHITE BLOOD COUNT (AUTO) 11.5 K/uL (4.8-10.8)
[2023-06-26 00:14] LABS: POTASSIUM 3.9 mmol/L (3.5-5.1)
[2023-06-26 00:18] LABS: ALBUMIN 3.3 g/dL (3.5-5.0); BILIRUBIN,TOTAL 1.6 mg/dL (0.2-1.0); TOTAL PROTEIN, SERUM 7.1 g/dL (6.0-8.3)
[2023-06-26 00:22] LABS: ADD UA MICROSCOPIC YES; APPEARANCE,URINE CLEAR (CLEAR); BILIRUBIN,URINE NEGATIVE (NEGATIVE); COLOR,URINE YELLOW (YELLOW); GLUCOSE, URINE (UA) NEGATIVE (NEGATIVE); KETONES,URINE NEGATIVE (NEGATIVE); LEUKOCYTE ESTERASE ,URINE 25 Leu/uL (NEGATIVE); NITRATE,URINE NEGATIVE (NEGATIVE); OCCULT BLOOD,URINE MODERATE (NEGATIVE); PROTEIN,URINE 20 mg/dL (NEGATIVE); UROBILINOGEN,URINE 0.2 mg/dL (0.2-1.0)
[2023-06-26 00:27] LABS: BACTERIA,URINE FEW /HPF (None Seen); MUCUS,URINE RARE LPF (None Seen); RBC,URINE 26-50 /HPF (0-1); SQUAMOUS EPITHELIAL CELL,UR RARE /HPF (0-2)
[2023-06-26] MEDS ORDERED: IOHEXOL-350 75 ML VIAL IV ONE (00:28)
[2023-06-26] MEDS: 0.9%NACL 1000ML 1,000 ML IV ONE (00:42)
[2023-06-26] MEDS: KETOROLAC 15MG/ML VIAL (15MG/ML) IV ONE (00:42)
[2023-06-26] MEDS: CEFTRIAXONE 1G VIAL IVPB ONE (01:11)
[2023-06-26] MEDS ORDERED: AMOX1TAB16 PO (01:32)
[2023-06-26] MEDS ORDERED: KETO10TA2 PO (01:32)
[2023-06-26 02:40] VITALS: BP 118/64; PULSE 68; RESP 18; O2SAT 98
== END 2023-06-26 02:42 | disposition home or self-care (01) ==
LOC: EDH 23:09
DX: G89.18 Other acute postprocedural pain (principal); N30.01 Acute cystitis with hematuria; K59.00 Constipation, unspecified; E86.0 Dehydration; E11.65 Type 2 diabetes mellitus with hyperglycemia; I10 Essential (primary) hypertension; E78.00 Pure hypercholesterolemia, unspecified; Z79.84 Long term (current) use of oral hypoglycemic drugs; Z79.899 Other long term (current) drug therapy; Z98.890 Other specified postprocedural states
CPT/HCPCS: 99285; 74177; 80053; 83690; 85025; 87040 ×2; 87077; 87088; 87186; 83605; 81001; 36415; 96365; 96375; J7030; J0696; J1885; Q9967

== ENCOUNTER 2023-07-22 11:18 | Day surgery (SDC) | payer OTHER ==
[2023-07-22 11:50] LABS: BASOPHILS # (AUTO) 0.03 K/uL (0.00-0.20); BASOPHILS % (AUTO) 0.5 % (0.0-5.0); EOSINOPHILS # (AUTO) 0.18 K/uL (0.00-0.70); EOSINOPHILS % (AUTO) 3.1 % (0.0-8.0); HEMATOCRIT 39.6 % (42-54); IMMATURE GRANULOCYTE ABSOLUTE 0.01 K/uL (0-1); LYMPHOCYTES # (AUTO) 1.8 K/uL (1.0-4.8); LYMPHOCYTES % (AUTO) 31.6 % (21.0-51.0); MEAN CORPUSCULAR HEMOGLOBIN 31.1 pg (27.0-33.0); MEAN CORPUSCULAR HGB CONC 33.3 g/dL (32.0-36.0); MEAN CORPUSCULAR VOLUME 93.2 fL (79-99); MONOCYTES # (AUTO) 0.7 K/uL (0.1-1.0); MONOCYTES % (AUTO) 11.6 % (3.0-13.0); NEUTROPHILS # (AUTO) 3.1 K/uL (1.8-7.7); PLATELET COUNT (AUTO) 138 K/uL (130-400); RED BLOOD CELL COUNT(AUTO) 4.25 MIL/uL (4.50-6.20); RED CELL DISTRIBUTION WIDTH 13.5 % (11.0-15.5); WHITE BLOOD COUNT (AUTO) 5.8 K/uL (4.8-10.8)
[2023-07-22 12:01] LABS: CREATININE 0.8 mg/dL (0.5-1.3); POTASSIUM 3.9 mmol/L (3.5-5.1)
[2023-07-22 12:03] LABS: INR 1.05 (0.85-1.15); PROTHROMBIN TIME 12.3 SEC (9.6-11.6)
[2023-07-22] MEDS ORDERED: IOHEXOL-350 50ML VIAL IV ONE (13:36)
[2023-07-22] MEDS ORDERED: LIDOCAINE HCL 400MG/20ML VIAL ONE (13:36)
[2023-07-22] MEDS ORDERED: FENTANYL CITRATE PF 50 MCG/1 ML 2ML VIAL ONE (14:10)
[2023-07-22] MEDS ORDERED: MIDAZOLAM HCL 1 MG/ML 2ML VIAL ONE (14:11)
[2023-07-22 15:05] VITALS: BP 138/84; PULSE 76; RESP 14
[2023-07-22 15:20] VITALS: BP 140/74; PULSE 65; RESP 14
[2023-07-22] MEDS: ACETAMINOPHEN 325 MG TAB PO PRN (15:24)
[2023-07-22 15:35] VITALS: BP 137/68; PULSE 60; RESP 15
[2023-07-22 15:50] VITALS: BP 135/71; PULSE 65; RESP 13
[2023-07-22 16:05] VITALS: BP 139/76; PULSE 65; RESP 14
== END 2023-07-22 16:30 | disposition home or self-care (01) ==
LOC: DAH 11:18
PROVIDERS: ATTEND Student in an Organized Health Care Education/Training Program
DX: K81.0 Acute cholecystitis (principal); I10 Essential (primary) hypertension; E11.9 Type 2 diabetes mellitus without complications; Z82.49 Family history of ischemic heart disease and other diseases of the circulatory system; Z82.3 Family history of stroke; Z80.9 Family history of malignant neoplasm, unspecified; Z83.3 Family history of diabetes mellitus; Z79.84 Long term (current) use of oral hypoglycemic drugs; Z79.899 Other long term (current) drug therapy; Z98.890 Other specified postprocedural states
CPT/HCPCS: 47536; 80048; 85025; 85610; 82948; 36415; C1769 ×2; C1729; J3490; J2250; J1644; Q9967; A4215; A4222; A4221; A4663; A4216; A4606; A4223 ×3; 47531; 99156; 99157; J3010

== ENCOUNTER 2024-04-16 23:14 | Emergency (ER) | payer OTHER ==
[~2024-04-16] VITALS: Ht 170.2 cm; Wt 97.5 kg
[2024-04-16 23:16] VITALS: BP 180/93; PULSE 62; RESP 16; TEMP 98.9
--- NOTE | 2024-04-17 01:42 | NUR ---
PATIENT EXPRESSED DESIRE TO LEAVE ED, STATED HE IS NOT FEELING THE INITIAL PAIN HE FELT UPON ARRIVAL. PATIENT AT THIS TIME DECIDED TO LEAVE WITHOUT BEING SEEN BY THE PROVIDER./[place]
--- NOTE | 2024-04-17 06:23 | EKG ---
[facility] Test Date: 2024-04-17 Test Time: 00:20:57 Pat Name: TED HESS Department: [facility] Room: Gender: M [employer] Mechanic: [id number] : 1945 Requested By: MEENA MAYO Order Number: [id number] Reading MD: Jose Armando Knight Measurements Intervals [place] Rate: 58 P: 15 VT: 161 QRS: -33 QRSD: 167 T: 85 QT: 489 QTc: 481 Interpretive Statements Sinus rhythm Left bundle branch block ST elevation secondary to IVCD Compared to ECG 06/27/2023 00:05:13 Intraventricular conduction delay now present ST (T wave) deviation now present Electronically Signed On 04-18-2024 23:19:12 CDT by Jose Armando Knight Please click the below link to view image of tracing.
== END 2024-04-17 01:46 | disposition left against medical advice (07) ==
LOC: EDH 23:14
DX: R10.84 Generalized abdominal pain (principal); Z53.21 Procedure and treatment not carried out due to patient leaving prior to being seen by health care provider
CPT/HCPCS: 93005